=== PATIENT | female | born 1955 | race Caucasian/White ===

== ENCOUNTER 2016-09-20 21:45 | Emergency (ER) | payer OTHER ==
[~2016-09-20] VITALS: Ht 165.1 cm; Wt 60.0 kg
[~2016-09-20 21:45] MED LIST: EFFE150C PO; ENAL10TA PO; LORA2TAB7 PO; OMEP40CA2 PO; TRAZ100T4 PO; VENL25TA PO; ZYRT10CA PO
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
[2016-09-20 22:22] VITALS: BP 138/66; PULSE 90; RESP 14; TEMP 98.2; O2SAT 99
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
== END 2016-09-20 23:38 ==
LOC: NEPB 21:45
DX: S09.90XA Unspecified injury of head, initial encounter (principal); S16.1XXA Strain of muscle, fascia and tendon at neck level, initial encounter; F39 Unspecified mood [affective] disorder; F19.10 Other psychoactive substance abuse, uncomplicated; I10 Essential (primary) hypertension; F17.200 Nicotine dependence, unspecified, uncomplicated; Z86.59 Personal history of other mental and behavioral disorders; W03.XXXA Other fall on same level due to collision with another person, initial encounter; Y04.0XXA Assault by unarmed brawl or fight, initial encounter
CPT/HCPCS: 70450; 72125

== ENCOUNTER 2016-10-27 11:13 | Emergency (ER) | payer OTHER ==
[~2016-10-27] VITALS: Ht 162.6 cm; Wt 66.0 kg
[2016-10-27 11:23] VITALS: BP 144/84; PULSE 92; RESP 18; TEMP 97.9; O2SAT 100
--- NOTE | 2016-10-27 11:31 | PD ---
HPI Chief Complaint: Back/ Neck Pain or Injury Time Seen by Provider: 11:30 Travel History International Travel<30 days: No Contact w/Intl Traveler<30days: No Traveled to known affect area: No History of Present Illness HPI 61 year old female with PMH of HTN, anxiety, depression, chronic low back pain presents to the ED for evaluation of 2 day history of worsening back pain. She denies any recent overuse or known trauma. She states that her pack periodically "goes out." She endorses radiation of the pain into the right buttock and down the outer aspect of the right leg to the knee. She endorses weakness or the left leg. She denies saddle anesthesia or incontinence. She states that she "can't walk." She states that since her back pain worsened she' s been in bed but "changing positions every 20 minutes." She states that her primary care provider called in muscle relaxants which she's been taking with 400 mg ibuprofen every 6 hours no improvement of symptoms. She states that she has a history of bulging disks and has previously had steroid injections but does not currently see a neurologist or pain management doctor. She drove herself to the emergency room today. Primary care is Dr. Millard. [facility] Past Medical History Bipolar Disorder: Yes Anxiety: Yes Depression: Yes Hypertension: Yes ?: Not : 3 Para: 2 Miscarriage: 1 Past Surgical History Hysterectomy: Yes Social History Alcohol Use: Yes (social) Tobacco Use: Yes (1/2 ppd) Substance Use: No Allergies-Medications (Allergen,Severity, Reaction): Coded Allergies: Dust (Verified Allergy, Unknown, 10/27/16) Reported Meds & Prescriptions Reported Meds & Active Scripts Active Naprosyn (Naproxen) 500 Mg Tab 500 Mg PO BID Medrol Dosepak (Methylprednisolone) 4 Mg Dspk 4 Mg PO DIRECTED Per Pharmacist direction Reported [muscle relaxer] Omeprazole 40 Mg Cap 40 Mg PO DAILY Effexor XR 24 HR (Venlafaxine HCl) 150 Mg Cap 150 Mg PO DAILY Effexor (Venlafaxine HCl) 25 Mg Tab Unknown Dose PO DIRECTED Enalapril (Enalapril Maleate) 10 Mg Tab 10 Mg PO DAILY Trazodone (Trazodone HCl) 100 Mg Tab 200 Mg PO HS Lorazepam 2 Mg Tab 4 Mg PO HS Lorazepam 2 Mg Tab 2 Mg PO DAILY Review of Systems Except as stated in HPI: all other systems reviewed are Neg Physical Exam Narrative GENERAL: Well-nourished, well-developed anxious, tearful white female in no acute distress. SKIN: Focused skin assessment warm/dry. HEAD: Normocephalic. EYES: No scleral icterus. No injection or drainage. NECK: Supple, trachea midline. No JVD or lymphadenopathy. CARDIOVASCULAR: Regular rate and rhythm without murmurs, gallops, or rubs. RESPIRATORY: Breath sounds equal bilaterally. No accessory muscle use. GASTROINTESTINAL: Abdomen soft, non-tender, nondistended. MUSCULOSKELETAL: No cyanosis, or edema. 5/5 strength to dorsiflexion, plantar flexion.Straight leg raise positive bilaterally. NEUROLOGICAL: Awake and alert. Cranial nerves II through XII intact. Motor and sensory grossly within normal limits. 5/5 muscle strength in all muscle groups. Normal speech. BACK: No obvious deformity. No CVA tenderness. ++midline tenderness extending to the right sciatic notch. Data Data Last Documented VS Vital Signs Date Time Temp Pulse Resp B/P Pulse Ox O2 Delivery O2 Flow Rate FiO2 10/27/16 12:31 18 10/27/16 11:23 97.9 92 144/[address] Lumb Spine W/O Contrast (10/27/16 11:51) Morphine Inj (Morphine Inj) (10/27/16 12:00) Dexamethasone Inj (Decadron Inj) (10/27/16 13:15) MDM Medical Decision Making Medical Screen Exam Complete: Yes Emergency Medical Condition: Yes Differential Diagnosis acute on chronic back pain versus sciatica versus radiculopathy versus drug seeking behavior versus other Narrative Course 61 year old female with PMH of HTN, anxiety, depression, chronic low back pain presents to the ED for evaluation of 2 day history of worsening back pain. She denies any recent overuse or known trauma. She states that her pack periodically "goes out." She endorses radiation of the pain into the right buttock and down the outer aspect of the right leg to the knee. She endorses weakness or the left leg. She denies saddle anesthesia or incontinence. She states that she "can't walk." Vitals reviewed. Physical exam reveals an anxious , tearful white female. 5/5 strength to dorsiflexion, plantar flexion.Straight leg raise positive bilaterally. No CVA tenderness. ++midline tenderness of the lumbar spine extending to the right sciatic notch. Exam somewhat limited by the patients constant moaning and crying out in pain. Last imaging of the spine 4 years ago. She is observed to stand upright and walk in the exam area. She drove herself to the ED. Patient states that her can pick her up. She was administered IM Decadron and morphine. CT of the lumbar spine reveals degenerative changes at L4 5 and L5-S1. On recheck the patient is sitting up in the chair at the end of the stretcher in no acute distress. The patient was prescribed a Medrol Dosepak and Naprosyn. She is provided a copy of her CT results. She is instructed to follow-up with her primary care provider, pain management doctor or neurologist. She indicated understanding of instructions. She requested narcotic pain medications which I declined. She is agreeable to the care plan. She is stable and discharged home. Diagnosis Primary Impression: Acute exacerbation of chronic low back pain Additional Impression: Right sided sciatica Referrals: Neurologist Pain Management Primary Care Physician Patient Instructions: Acute Low Back Pain (ED), General Instructions, Sciatica (ED) Additional Instructions: A mixture of rest and normal, gentle activity is best for back pain. Return to normal, gentle activities as tolerated. Begin taking the Medrol Dosepak tomorrow. Continue with muscle relaxants as prescribed by your PCP. Do not drive while taking muscle relaxants. Follow up with the primary care, neurologist or pain management provider. Return to the ED for any urgent or emergent medical condition. Med/Other Pt SpecificInfo: Prescription(s) given Scripts Naproxen (Naprosyn)500 Mg [id number] Mg PO BID #20 TAB Ref 0 Prov:Olivier Mcgrath MD 10/27/16 Methylprednisolone Dosepak (Medrol Dosepak)4 Mg Dspk4 Mg PO DIRECTED #1 DSPK Ref 0 Per Pharmacist direction Prov:Olivier Mcgrath MD 10/27/16 Disposition: 01 DISCHARGE HOME Condition: Stable Meagan Redding Oct 27, 2016 11:31
[2016-10-27] MEDS ORDERED: muscle relaxer (11:35)
[2016-10-27] MEDS ORDERED: MORPHINE SULFATE 4 MG/ML INJ IM ONE (12:00)
[2016-10-27 12:31] VITALS: RESP 18
[2016-10-27] MEDS ORDERED: MEDR4PAK PO (12:41)
[2016-10-27] MEDS ORDERED: DEXAMETHASONE SOD PHOS 4 MG/ML VIAL IM ONE (13:15)
--- NOTE | 2016-10-27 13:36 | RADHPO ---
EXAM DATE/TIME: 10/27/2016 12:11 [facility] COMPARISON: No previous studies available for comparison. INDICATIONS : Lower back pain. No known injury. RADIATION DOSE: 27.09 CTDIvol (mGy) MEDICAL HISTORY : Hypertension. SURGICAL HISTORY : Hysterectomy. ENCOUNTER: Initial ACUITY: 1 week PAIN SCALE: 10/10 LOCATION: Lumbar TECHNIQUE: Volumetric scanning of the lumbar spine was performed. Multiplanar reconstructions in the sagittal, coronal and oblique axial planes were performed. Using automated exposure control and adjustment of the mA and/or kV according to patient size, radiation dose was kept as low as reasonably achievable t o obtain optimal diagnostic quality images. FINDINGS: Scans are obtained from T12 to S1. T12-L1: The thecal sac has a normal diameter. No evidence of disc bulge or protrusion. The neural foramina are patent bilaterally. L1-L2: The thecal sac has a normal diameter. No evidence of disc bulge or protrusion. The neural foramina are patent bilaterally. L2-L3: There is some mild bulging present with minimal degenerative changes present in the facets. L3-L4: There is generalized disc bulging present causing some flattening of anterior thecal space. Mild deg enerative changes present in facets. L4-L5: Extensive vacuum changes are seen at L4-5 with loss of disc space height and moderate bilateral neura l foramina encroachment much worse on the right than the left. L5-S1: There is disc bulging L5-S1 causing some flattening of the anterior thecal space without significant spinal stenosis. Foramina are adequate. There are sclerotic changes in the left S1-S2 articulation thought to be a degenerative process. Thi s is a unilateral articulation that well may be a source of pain. CONCLUSION: Degenerative changes as described above. Two pain generators are evident, one at L4-5 and one at S1- S2 on the left. Correlation is suggested. Javad Clarke MD FACR on October 27, 2016 at 13:23 Board Certified Radiologist. This report was verified electronically.
[2016-10-27] MEDS ORDERED: NAPR500 PO (14:14)
== END 2016-10-27 14:23 | disposition home or self-care (01) ==
LOC: PHEFT 11:13
DX: M54.41 Lumbago with sciatica, right side (principal); I10 Essential (primary) hypertension; F41.9 Anxiety disorder, unspecified; F32.9 Major depressive disorder, single episode, unspecified; F31.9 Bipolar disorder, unspecified; F17.200 Nicotine dependence, unspecified, uncomplicated
CPT/HCPCS: 72131; 96372; 99283; J1100; J2270

== ENCOUNTER 2016-12-08 11:08 | Emergency (ER) | payer OTHER ==
[~2016-12-08] VITALS: Ht 157.5 cm; Wt 65.2 kg
[~2016-12-08 11:08] MED LIST changes: +MEDR4PAK PO; +NAPR500 PO; -ZYRT10CA PO; +muscle relaxer
[2016-12-08 11:13] VITALS: BP 135/69; PULSE 95; RESP 16; TEMP 98.3; O2SAT 97
[2016-12-08] MEDS ORDERED: ACETAMINOPHEN/HYDROcodone 325 MG/5 MG TAB PO ONE (12:00)
[2016-12-08] MEDS ORDERED: CLINDAMYCIN INJ 600 MG in SODIUM CHLORIDE 0.9% INJ 100 ML IV ONE (12:00)
[2016-12-08] MEDS ORDERED: SODIUM CHLORIDE 0.9% FLUSH 10 ML FLUSH IVF PRN (12:00)
--- NOTE | 2016-12-08 12:00 | PD ---
HPI Chief Complaint: Oral / Dental Pain or Problem Time Seen by Provider: 11:49 Travel History International Travel<30 days: No Contact w/Intl Traveler<30days: No Traveled to known affect area: No History of Present Illness HPI 61-year-old female presents to the emergency room for evaluation of right upper dental pain for the past month. Patient states this been increasingly worsening over time. She has been alternating saltwater rinses and baking soda rinses without significant relief in symptoms. She states over the past couple days it has gotten significantly worse with associated fever, chills, tingling, and palpitations. Maximum temperature at home was 101 yesterday. She has been taking Motrin for pain and fever. Last took Motrin this morning. She called her primary care physician who recommended she come to the emergency room to be evaluated for sepsis. She has an appointment with her dentist "at the end of the month." PFSH Past Medical History Bipolar Disorder: Yes Anxiety: Yes Depression: Yes Hypertension: Yes Tetanus Vaccination: < 5 Years Influenza Vaccination: No : 3 Para: 2 Miscarriage: 1 Past Surgical History Hysterectomy: Yes Social History Alcohol Use: Yes (social) Tobacco Use: Yes (1/2 ppd) Substance Use: No Allergies-Medications (Allergen,Severity, Reaction): Coded Allergies: Dust (Verified Allergy, Unknown, 12/08/16) Reported Meds & Prescriptions Reported Meds & Active Scripts Active Lortab (Hydrocodone-Acetaminophen) 5-325 Mg Tab 1 Tab PO Q6H PRN Clindamycin (Clindamycin HCl) 150 Mg Cap 300 Mg PO Q6H 10 Days Reported Omeprazole 40 Mg Cap 40 Mg PO DAILY Effexor XR 24 HR (Venlafaxine HCl) 150 Mg Cap 150 Mg PO DAILY Effexor (Venlafaxine HCl) 25 Mg Tab Unknown Dose PO DIRECTED Enalapril (Enalapril Maleate) 10 Mg Tab 10 Mg PO DAILY Trazodone (Trazodone HCl) 100 Mg Tab 200 Mg PO HS Lorazepam 2 Mg Tab 4 Mg PO HS Lorazepam 2 Mg Tab 2 Mg PO DAILY Review of Systems Except as stated in HPI: all other systems reviewed are Neg Physical Exam Narrative GENERAL: Well-developed, well-nourished female in no acute distress. Afebrile. Ambulatory. SKIN: Focused skin assessment warm/dry. HEAD: Atraumatic. Normocephalic. EYES: Pupils equal and round. No scleral icterus. No injection or drainage. ENT: No nasal bleeding or discharge. Mucous membranes pink and moist. DENTAL: Mild decay throughout; patient has a bridge in place. No malocclusion. Tenderness to palpation of teeth #29-31. No surrounding erythema, drainage, or edema. Slight right-sided, soft buccal edema. No submental, submandibular, or buccal induration. NECK: Trachea midline. No JVD. CARDIOVASCULAR: Regular rate and rhythm. No murmur appreciated. RESPIRATORY: No accessory muscle use. Clear to auscultation. Breath sounds equal bilaterally. NEUROLOGICAL: Awake and alert. No obvious cranial nerve deficits. Motor grossly within normal limits. Normal speech. PSYCHIATRIC: Appropriate mood and affect; insight and judgment normal. Data Data Last Documented VS Vital Signs Date Time Temp Pulse Resp B/P Pulse Ox O2 Delivery O2 Flow Rate FiO2 12/08/16 11:13 98.3 95 16 135/69 97 Orders Basic Metabolic Panel (Bmp) (12/08/16 11:47) Complete Blood Count With Diff (12/08/16 11:47) Iv Access Insert/Monitor (12/08/16 11:47) Acetamin-Hydrocod 325-5 Mg ([place] 5-325 (12/08/16 12:00) Clindamycin Inj (Cleocin Inj) (12/08/16 12:00) Sodium Chloride 0.9% Flush (Ns Flush) (12/08/16 12:00) Labs Laboratory Tests Test 12/08/16 12:00 White Blood Count 6.5 TH/MM3 Red Blood Count 4.40 MIL/MM3 Hemoglobin 13.6 GM/DL Hematocrit 39.7 % Mean Corpuscular Volume 90.4 FL Mean Corpuscular Hemoglobin 30.9 PG Mean Corpuscular Hemoglobin 34.2 % Concent Red Cell Distribution Width 12.2 % Platelet Count 236 TH/MM3 Mean Platelet Volume 8.9 FL Neutrophils (%) (Auto) 66.8 % Lymphocytes (%) (Auto) 25.0 % Monocytes (%) (Auto) 5.9 % Eosinophils (%) (Auto) 1.5 % Basophils (%) (Auto) 0.8 % Neutrophils # (Auto) 4.3 TH/MM3 Lymphocytes # (Auto) 1.6 TH/MM3 Monocytes # (Auto) 0.4 TH/MM3 Eosinophils # (Auto) 0.1 TH/MM3 Basophils # (Auto) 0.1 TH/MM3 CBC Comment DIFF FINAL Differential Comment Sodium Level 141 MEQ/L Potassium Level 3.5 MEQ/L Chloride Level 103 MEQ/L Carbon Dioxide Level 31.4 MEQ/L Anion Gap 7 MEQ/L Blood Urea Nitrogen 15 MG/DL Creatinine 0.77 MG/DL Estimat Glomerular Filtration 76 ML/MIN Rate Random Glucose 109 MG/DL Calcium Level 8.7 MG/DL [facility] Medical Decision Making Medical Screen Exam Complete: Yes Emergency Medical Condition: Yes Medical Record Reviewed: Yes Differential Diagnosis Dental abscess versus sepsis versus dentalgia Narrative Course 61-year-old female presents to the emergency room for evaluation of dental pain and swelling for the past month it is been getting progressively worse. She has had associated fever of 101 yesterday, chills, and body aches. She called her primary care physician recommended she come to the emergency room to rule out sepsis. Physical exam is reassuring. Vital signs stable. Patient last took ibuprofen prior to arrival. There is no obvious abscess in the mouth. No erythema or edema of the gingiva. Right buccal space is slightly edematous but not extremely tender to palpation. No evidence of Morgan angina. CBC and BMP are unremarkable. Patient has an appointment with her dentist in 1-2 weeks. She is given IV clindamycin in the emergency room and will be discharged with prescription for oral clindamycin. Told to follow up with her dentist as planned or return for worsening symptoms. She understands and agrees to plan. Diagnosis Primary Impression: Dental abscess Referrals: Dentist Primary Care Physician Patient Instructions: Dental Abscess (ED), General Instructions Departure Forms: Tests/Procedures Additional Instructions: Rest and drink plenty of fluids. [place] your teeth twice daily. Lortab as directed, as needed for pain. Do not drink alcohol or drive while taking this medication. Take clindamycin as directed, until gone. Follow-up with a dentist. Return to the emergency room for worsening symptoms. Scripts Hydrocodone-Acetaminophen (Lortab)5-325 Mg Tab1 Tab PO Q6H PRN (PAIN) #10 TAB Ref 0 Prov:Yobany King MD 12/08/16 Clindamycin 150 Mg [id number] Mg PO Q6H 10 Days Ref 0 Prov:Yobany King MD 12/08/16 Disposition: 01 DISCHARGE HOME Condition: Stable Josselyn Ybarra December 08, 2016 12:00
[2016-12-08 12:14] LABS: AUTOMATED NEUTROPHIL # 4.3 TH/MM3 (1.8-7.7); BASOPHIL # 0.1 TH/MM3 (0-0.2); BASOPHIL % 0.8 % (0.0-2.0); EOSINOPHIL # 0.1 TH/MM3 (0-0.4); EOSINOPHIL % 1.5 % (0.0-4.0); HEMATOCRIT 39.7 % (35.0-46.0); HEMO FLAGS DIFF FINAL; LYMPHOCYTE # 1.6 TH/MM3 (1.0-4.8); MEAN CELL VOLUME 90.4 FL (80.0-100.0); MEAN CORPUSCULAR HEMOGLOBIN 30.9 PG (27.0-34.0); MEAN CORPUSCULAR HGB CONC 34.2 % (32.0-36.0); MONO % 5.9 % (0.0-8.0); NEUT % 66.8 % (16.0-70.0); PLATELET COUNT 236 TH/MM3 (150-450); POTASSIUM 3.5 MEQ/L (3.5-5.1); RED CELL DISTRIBUTION WIDTH 12.2 % (11.6-17.2); WHITE BLOOD COUNT 6.5 TH/MM3 (4.0-11.0)
[2016-12-08 12:17] LABS: BICARBONATE 31.4 MEQ/L (21.0-32.0)
[2016-12-08] MEDS ORDERED: HYDR-3533 PO (12:30)
[2016-12-08] MEDS ORDERED: CLIN1CAP5 PO (12:30)
[2016-12-08 13:16] VITALS: BP 153/66
== END 2016-12-08 13:21 | disposition home or self-care (01) ==
LOC: PHEFT 11:08
DX: K04.7 Periapical abscess without sinus (principal); F31.9 Bipolar disorder, unspecified; F41.9 Anxiety disorder, unspecified; I10 Essential (primary) hypertension; F17.200 Nicotine dependence, unspecified, uncomplicated; Z79.899 Other long term (current) drug therapy
CPT/HCPCS: 80048; 85025; 96365